=== PATIENT | male | born 1990 | race Caucasian/White ===

== ENCOUNTER → 2016-09-18 | Outpatient (CLI) | payer SELFPAY | LOC: M WUC 17:15 | PROVIDERS: ATTEND Physician Assistant | DX: N45.1 Epididymitis (principal) ==

== ENCOUNTER 2017-05-03 18:40 | Emergency (ER) | payer SELFPAY ==
[2017-05-03] MEDS: NORCO, ANEXSIA 5/325MG TABLET (HYDROcodone/ACETAMINOPHEN) PO (19:30)
[2017-05-03] MEDS: NORCO 5/325MG TABLET (BULK FOR ED) PO (19:45)
== END 2017-05-03 20:23 | disposition home or self-care (01) ==
LOC: M ED 18:40
DX: S86.201A Unspecified injury of muscle(s) and tendon(s) of anterior muscle group at lower leg level, right leg, initial encounter (principal); W51.XXXA Accidental striking against or bumped into by another person, initial encounter; Y92.39 Other specified sports and athletic area as the place of occurrence of the external cause
CPT/HCPCS: 73564